=== PATIENT | female | born 1975 | race Caucasian/White ===

== ENCOUNTER 2017-01-09 08:36 | Outpatient (CLI) | payer OTHER ==
--- NOTE | 2017-01-09 16:46 | MRI Report ---
EXAM: RIGHT ANKLE/HINDFOOT MRI WITHOUT CONTRAST EXAM DATE: 01/09/2017 09:39 AM. CLINICAL HISTORY: ANKLE JOINT PAIN, RIGHT. ROLLED HER ANKLE 3 YRS AGO WITH PAIN, DIFFICULTY WALKING . COMPARISON: RIGHT ANKLE SERIES 12/29/2016, 04/28/2014. TECHNIQUE: Multiplanar, multisequence T1-weighted and fluid-sensitive sequences of the ankle/hindfoot without contrast. Other: None. FINDINGS: Bones: No fractures or subluxations. Quite severe osteoarthritis in the posterior part of the subtala r joint with extensive juxtaarticular cysts, edema and sclerosis mainly in the medial part. A small b enign bone island or osteoma in the posteromedial distal tibial diaphysis. Articular Cartilage: Unremarkable. No osteochondral lesion. Ligaments: The anterior and posterior tibiofibular, anterior and posterior talofibular, and calcaneof ibular ligaments are intact. The deep and superficial deltoid and spring ligaments are intact. Anterior Tendons: The tibialis anterior, extensor hallucis longus, and extensor digitorum longus tend ons are unremarkable. Medial Tendons: The tibialis posterior, flexor digitorum longus, and flexor hallucis longus tendons a re unremarkable. 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 The peroneus longus is unremarkable. Achilles Tendon: The Achilles tendon is unremarkable. Musculature: No edema or fatty atrophy. Other: No effusions. The contents of the sinus tarsi and tarsal tunnel are unremarkable. No plantar f asciitis. The subcutaneous tissues are unremarkable. IMPRESSION: 1. 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 2. 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 3. Ligaments are intact. [facility] MUSCULOSKELETAL RADIOLOGY SECTION Referring Provider Line: [phone] SITE ID: [id number]
== END 2017-01-09 08:37 | disposition home or self-care (01) ==
LOC: DI 08:36
PROVIDERS: ATTEND Orthopaedic Surgery
DX: M19.071 Primary osteoarthritis, right ankle and foot (principal); M67.971 Unspecified disorder of synovium and tendon, right ankle and foot

== ENCOUNTER 2020-02-25 15:51 | Outpatient (CLI) | payer OTHER | END 2020-02-25 15:52 | disposition critical access hospital (66) | LOC: EMS 15:51 | PROVIDERS: ATTEND Surgery | DX: R42 Dizziness and giddiness (principal); R53.1 Weakness | CPT/HCPCS: A0425; A0429 ==

== ENCOUNTER 2020-02-25 17:07 | Emergency (ER) | payer OTHER ==
--- NOTE | 2020-02-25 17:39 | ED Physician Documentation ---
History of Present Illness - Stated complaint Stated Complaint: WEAKNESS - Chief complaint Chief Complaint: General - History obtained from History obtained from: Patient - History of Present Illness Timing: Today (44-year-old woman was out mowing the grass today, she started to feel dizzy and nauseous and lay down in the grass, then she subsequently developed what sounds a panic attack with cramping of the upper extremities and posturing and shortness of breath. Now feeling better. She hd similar prior epis) Review of Systems Constitutional: denies: Fever, Chills Cardiac: denies: Chest pain / pressure Respiratory: denies: Cough GI: denies: Abdominal Pain PD PAST MEDICAL HISTORY - Past Surgical History Past Surgical History: No - Present Medications Home Medications: Ambulatory Orders Medication Instructions Recorded Confirmed No Known Home Medications 02/25/20 02/25/20 - Allergies Allergies/Adverse Reactions: Allergies Allergy/AdvReac Type Severity Reaction Status Date / Time No Known Drug Allergies Allergy Verified 02/25/20 17:25 - Social History Does the pt smoke?: No Smoking Status: Never smoker Does the pt drink ETOH?: No Does the pt have substance abuse?: No - Immunizations Immunizations are current?: No Immunizations: TDAP >10years/unknown - POLST Patient has POLST: No PD ED PE NORMAL - Vitals Vital signs reviewed: Yes - General General: Alert and oriented X 3, No acute distress - HEENT HEENT: PERRL, EOMI - Neck Neck: Supple, no meningeal sign, No bony TTP - Cardiac Cardiac: RRR, No murmur - Respiratory Respiratory: No respiratory distress, Clear bilaterally - Abdomen Abdomen: Soft, Non tender - Back Back: No CVA TTP, No spinal TTP - Derm Derm: Normal color, Warm and dry - Extremities Extremities: No edema, No calf tenderness / cord - Neuro Neuro: Alert and oriented X 3, Other (NIH stroke scale done at 5:35 PM was 0) - Psych Psych: Other (Slightly anxious) Results - Vitals Vitals: Vital Signs - 24 hr 02/25/20 17:10 Temperature 36 C L Heart Rate 89 Respiratory 18 Rate Blood Pressure 111/53 L O2 Saturation 100 Oxygen O2 Source Room air - Labs Labs: Laboratory Tests 02/25/20 02/25/20 17:37 17:37 VBG pH 7.381 VBG pCO2 33.5 L VBG pO2 33.1 VBG HCO3 19.4 L VBG Total CO2 20.4 L VBG O2 Saturation 68.3 VBG Base Excess -4.7 L Sodium 138 Potassium 3.4 L Chloride 104 Carbon Dioxide 20 L Anion Gap 14.0 H BUN 9 Creatinine 0.8 Estimated GFR (MDRD) 78 L Glucose 78 Calcium 8.8 Magnesium 2.1 PD MEDICAL DECISION MAKING - ED course ED course: 44-year-old woman with dizzy and nausea episode with cramping most consistent with panic attack. Differential diagnosis also includes stroke however she has no physical signs of that, vertigo although she did not complain of that, electrolyte abnormality. Labs only notable for mild hypokalemia. Departure - Departure Disposition: 01 Home, Self Care Clinical Impression: Dizziness, Hypokalemia Condition: Good Record reviewed to determine appropriate education?: Yes Instructions: Hypokalemia Dc, ED Dizziness [facility] Comments: Your symptoms are most consistent with a panic attack. However some of the may be due to a mildly low potassium for which we gave you a potassium pill. Flirt return if worse and follow-up with your doctor, next available appointment. Discharge Date/Time: 02/25/20 19:00
[2020-02-25 18:33] LABS: VBG BASE EXCESS -4.7 mmol/L (-2 - +2); VBG PCO2 33.5 mmHg (41-51); VBG PH 7.381 (7.31-7.41); VBG PO2 33.1 mmHg (25-47); VBG TOTAL CO2 20.4 mmol/L (24-29)
[2020-02-25 18:35] LABS: CALCIUM 8.8 mg/dL (8.5-10.3); CREATININE 0.8 mg/dL (0.4-1.0); MAGNESIUM 2.1 mg/dL (1.7-2.8)
[2020-02-25] MEDS ORDERED: POTASSIUM CHLORIDE 20 MEQ TABLET PO STA (18:55)
[2020-02-25 22:18] VITALS: BP 114/60
== END 2020-02-25 19:00 | disposition home or self-care (01) ==
LOC: EDUNIT# → ED 17:07
DX: R42 Dizziness and giddiness (principal); R11.0 Nausea; E87.6 Hypokalemia; F41.9 Anxiety disorder, unspecified
CPT/HCPCS: 36415; 80048; 82803; 83735; 99283; 99284; A9270

== ENCOUNTER 2021-04-15 16:37 | Emergency (ER) | payer OTHER ==
[2021-04-15 17:11] LABS: BASOPHILS # (AUTO) 0.1 10^3/uL (0.0-0.1); EOSINOPHILS # (AUTO) 0.1 10^3/uL (0.0-0.7); EOSINOPHILS % (AUTO) 1.2 %; HCT - HEMATOCRIT 42.7 % (37.0-47.0); HGB - HEMOGLOBIN 14.3 g/dL (12.0-16.0); LYMPHOCYTES # (AUTO) 2.8 10^3/uL (1.5-3.5); LYMPHOCYTES % (AUTO) 34.3 %; MEAN CORPUSCULAR HEMOGLOBIN 31.2 pg (27.0-31.0); MEAN CORPUSCULAR HGB CONC 33.5 g/dL (32.0-36.0); MEAN PLATELET VOLUME 10.2 fL (7.9-10.8); MONOCYTES # (AUTO) 0.7 10^3/uL (0.0-1.0); MONOCYTES % (AUTO) 8.2 %; NEUTROPHILS # (AUTO) 4.4 10^3/uL (1.5-6.6); NEUTROPHILS % (AUTO) 54.9 %; PLT - PLATELET COUNT 317 10^3/uL (130-450); RED BLOOD COUNT 4.59 10^6/uL (4.20-5.40); RED CELL DISTRIBUTION WIDTH 12.1 % (12.0-15.0)
[2021-04-15 17:23] LABS: ALBUMIN 4.5 g/dL (3.2-5.5); ALBUMIN/GLOBULIN RATIO 1.4 (1.0-2.2); BILIRUBIN,TOTAL 0.5 mg/dL (0.2-1.0); CALCIUM 9.4 mg/dL (8.5-10.3); CREATININE 0.7 mg/dL (0.4-1.0); POTASSIUM 3.5 mmol/L (3.5-5.0); TOTAL PROTEIN 7.7 g/dL (6.7-8.2)
[2021-04-15 18:14] LABS: BILIRUBIN,URINE NEGATIVE (NEGATIVE); GLUCOSE, URINE (UA) NEGATIVE (NEGATIVE); KETONES,URINE (UA) NEGATIVE (NEGATIVE); LEUKOCYTE ESTERASE, URINE NEGATIVE (NEGATIVE); NITRITE,URINE NEGATIVE (NEGATIVE); OCCULT BLOOD,URINE SMALL (NEGATIVE); PH,URINE 5.5 PH (5.0-7.5); PROTEIN,URINE NEGATIVE (NEGATIVE); UROBILINOGEN,URINE 0.2 (NORMAL) E.U./dL (NORMAL)
[2021-04-15 18:19] LABS: CLARITY,URINE HAZY (CLEAR); HCG UR QUAL NEGATIVE
[2021-04-15 18:43] LABS: SQUAMOUS EPITHELIAL CELL,UR NONE SEEN (<= Few); WBC,URINE 0-3 /HPF (0-5)
[2021-04-15 18:44] LABS: BACTERIA,URINE Rare /HPF (None Seen)
--- NOTE | 2021-04-15 20:39 | ED Physician Documentation ---
PD HPI ABD PAIN - Stated complaint Stated Complaint: LT SIDE PX - Chief complaint Chief Complaint: Abd Pain - History obtained from History obtained from: Patient - History of Present Illness Timing - onset: How many days ago (2) Timing - duration: Days (2) Timing - details: Gradual onset, Still present, Waxing and waning Quality: Cramping, Aching, Pain Location: LLQ Radiation: Left flank Worsened by: Moving. No: Breathing Associated symptoms: Nausea. No: Fever, Vomiting, Diarrhea (but has had couple episodes of loose stool.), Constipation Review of Systems Constitutional: denies: Fever, Chills Nose: denies: Rhinorrhea / runny nose, Congestion Throat: denies: Sore throat Respiratory: denies: Cough GI: reports: Abdominal Pain, Nausea. denies: Abdominal Swelling, Vomiting, Constipation, Diarrhea : denies: Dysuria, Frequency, Discharge, Irregular menses Skin: reports: Rash Musculoskeletal: denies: Neck pain, Back pain PD PAST MEDICAL HISTORY - Past Surgical History Past Surgical History: No - Present Medications Home Medications: Ambulatory Orders Medication Instructions Recorded Confirmed HYDROcod/ACETAM 5/325 [[place] 5/325] 1 ea PO Q6H PRN #12 tablet 04/15/21 Ibuprofen [Motrin] 600 mg PO TID PRN #15 tab 04/15/21 predniSONE [Prednisone] 50 mg PO DAILY PRN 04/15/21 04/15/21 - Allergies Allergies/Adverse Reactions: Allergies Allergy/AdvReac Type Severity Reaction Status Date / Time No Known Drug Allergies Allergy Verified 04/15/21 16:51 - Social History Does the pt smoke?: No Smoking Status: Never smoker Does the pt drink ETOH?: No Does the pt have substance abuse?: No - Immunizations Immunizations are current?: No Immunizations: TDAP >10years/unknown - POLST Patient has POLST: No PD ED PE NORMAL - Vitals Vital signs reviewed: Yes - General General: Alert and oriented X 3, Well developed/nourished, Other (appears uncomfortable and in pain left lower abd. Holding her left low abd. ) - Neck Neck: Supple, no meningeal sign, No adenopathy - Cardiac Cardiac: RRR, No murmur - Respiratory Respiratory: Clear bilaterally - Abdomen Abdomen: Normal bowel sounds, Soft, Non distended, No organomegaly, Other (tender with some guarding LLQ but without percussion nor rebound tenderness. ) - Female Female : Deferred - Rectal Rectal: Deferred - Back Back: No CVA TTP - Derm Derm: Normal color, No rash - Extremities Extremities: No tenderness to palpate, Normal ROM s pain, No edema, No calf tenderness / cord - Neuro Neuro: Alert and oriented X 3, No motor deficit, Normal speech Results - Vitals Vitals: Oxygen O2 Source Room air - Labs Labs: Laboratory Tests 04/15/21 04/15/21 04/15/21 17:05 17:05 17:23 WBC 8.0 RBC 4.59 Hgb 14.3 Hct 42.7 MCV 93.0 MCH 31.2 H MCHC 33.5 RDW 12.1 Plt Count 317 MPV 10.2 Neut # (Auto) 4.4 Lymph # (Auto) 2.8 Major # (Auto) 0.7 Eos # (Auto) 0.1 Baso # (Auto) 0.1 Absolute Nucleated RBC 0.00 Nucleated RBC % 0.0 Sodium 138 Potassium 3.5 Chloride 104 Carbon Dioxide 24 Anion Gap 10.0 BUN 12 Creatinine 0.7 Estimated GFR (MDRD) 90 Glucose 107 H Calcium 9.4 Total Bilirubin 0.5 AST 16 ALT 19 Alkaline Phosphatase 66 Total Protein 7.7 Albumin 4.5 Globulin 3.2 Albumin/Globulin Ratio 1.4 Lipase 30 Urine Color YELLOW Urine Clarity HAZY Urine pH 5.5 Ur Specific [place] 1.010 Urine Protein NEGATIVE Urine Glucose (UA) NEGATIVE Urine Ketones NEGATIVE Urine Occult Blood SMALL H Urine Nitrite NEGATIVE Urine Bilirubin NEGATIVE Urine Urobilinogen 0.2 (NORMAL) Ur Leukocyte Esterase NEGATIVE Urine RBC 6-10 H Urine WBC 0-3 Ur Squamous Epith Cells NONE SEEN Urine Bacteria Rare Ur Microscopic Review INDICATED Urine Culture Comments NOT INDICATED Urine HCG, Qual NEGATIVE - Rads (name of study) abd/pelvic CT Radiology: Prelim report reviewed (Uterine fibroid. No obvious diverticulitis cysts or stones.), See rad report PD MEDICAL DECISION MAKING - ED course Complexity details: reviewed results, re-evaluated patient (improved with meds. ), considered differential (consider ovarian cyst, rupture, kidney stone, diverticulitis, or just musculoskeletal. ), d/w patient Departure - Departure Disposition: 01 Home, Self Care Clinical Impression: Abdominal pain Qualifiers: Abdominal location: left lower quadrant Qualified Code(s): R10.32 - Left lower quadrant pain Condition: Stable Record reviewed to determine appropriate education?: Yes Instructions: ED Abdominal Pain Unkn Cause Follow-Up: Jeffrey Hernandez DO [Primary Care Provider] - Prescriptions: Ibuprofen [Motrin] 600 mg PO TID PRN #15 tab PRN Reason: Pain HYDROcod/ACETAM 5/325 [[place] 5/325] 1 ea PO Q6H PRN #12 tablet PRN Reason: Pain Comments: NO obvious abnormality is seen on CT and labs/urine test. Consider some pain from uterine fibroids or ovary, or some irritation of the lower intestine/colon. I would suggestTrying some anti-inflammatories such as ibuprofen 600 mg 3 times a day with food. To that add Tylenol if needed for pain. If you have soft stools and continue with just normal diet. If they are slightly firm, add docusate stool softener. This would be in case you are having some irritation of the lower intestine. Add Tylenol every 4-6 hours if needed for pain or hydrocodone if needed for worse pain. I transmitted the prescription to [facility] in [place]. Follow-up with your primary care or return to the ER if the pain has not resolved completely over the next 2 to 3 days. Return if worsening or other associated symptoms such as fever, vomiting, increased pain, bloody stools, other concerns. Discharge Date/Time: 04/15/21 23:09
[2021-04-15] MEDS ORDERED: ONDANSETRON 4 MG/2 ML VIAL IVP STA (20:50)
[2021-04-15] MEDS ORDERED: HYDROmorphone 1 MG/ML CARPUJECT IVP STA (20:50)
[2021-04-15] MEDS ORDERED: SODIUM CHLORIDE 0.9% 1,000 ML IV STA (20:50)
[2021-04-15] MEDS ORDERED: IOPAMIDOL-300 100 ML VIAL ONE (21:07)
[2021-04-15] MEDS ORDERED: IOPAMIDOL-300 100 ML VIAL IVP ONE (21:22)
--- NOTE | 2021-04-15 21:53 | CT Report ---
PROCEDURE: Abdomen/Pelvis W INDICATIONS: LLQ pain for a day CONTRAST: IV CONTRAST: Isovue 300 ml: 100 PO CONTRAST: *NO PO CONTRAST TECHNIQUE: After the administration of IV contrast, 5 mm thick sections acquired from the diaphragms to the symp hysis. 5 mm thick coronal and sagittal reformats were acquired. For radiation dose reduction, the f ollowing was used: automated exposure control, adjustment of mA and/or kV according to patient size. COMPARISON: None. FINDINGS: Image quality: Excellent. ABDOMEN: Lung bases: Lung bases are clear. Heart size is normal. Small hiatal hernia. Solid organs: Liver and spleen are normal in size and enhancement. Gallbladder is unremarkable. Bi liary system is non dilated. Pancreas enhances normally. No peripancreatic fluid collection. No adre nal nodules. Kidneys demonstrate normal size and enhancement, without hydronephrosis. Peritoneum and bowel: Bowel loops demonstrate normal wall thickness and caliber. No significant div erticulosis. The appendix is not identified. No free fluid or air. Nodes and vessels: No retroperitoneal or mesenteric adenopathy by size criteria. Aorta and inferior vena cava are normal in size. Miscellaneous: Tiny umbilical hernia. PELVIS: Genitourinary: Bladder is decompressed. Enlarged globular uterus. Uterus is retroverted. Uterus rosemarie ures approximately 8.6 cm, (7/43). Miscellaneous: No inguinal hernias or adenopathy. Bones: No suspicious bony lesions. No vertebral body compression fractures. IMPRESSION: 1. No acute abnormality identified. No free fluid. No diverticulitis. 2. Large fibroid uterus. Consider further characterization with pelvic ultrasound. Reviewed by: Ej Blanchard MD on 04/15/2021 9:52 PM PDT Approved by: Ej Blanchard MD on 04/15/2021 9:52 PM PDT Station ID: [id number]
[2021-04-15] MEDS ORDERED: KETOROLAC 15 MG/ML VIAL IVP STA (22:15)
[2021-04-15] MEDS ORDERED: DOCUSATE SODIUM 100 MG CAPSULE PO STA (22:16)
[2021-04-15] MEDS ORDERED: oxyCODONE/ACET 5/325 Prepack 4 PO STA (22:17)
[2021-04-15 22:38] VITALS: BP 130/69
[2021-04-15] MEDS ORDERED: DROPERIDOL 5 MG/2 ML VIAL IVP STA (22:38)
== END 2021-04-15 23:09 | disposition home or self-care (01) ==
LOC: ED 16:37
DX: R10.32 Left lower quadrant pain (principal)
CPT/HCPCS: 36415; 74177; 80053; 81001; 81025; 83690; 85025; 96361; 96374; 96375; 99284; A9270; J1170; Q9967; 81003; 87086